=== PATIENT | male | born 1990 | race Caucasian/White ===

== ENCOUNTER 2019-05-16 16:08 | Emergency (ER) | payer MEDICAID ==
[2019-05-16 16:43] VITALS: BP 144/85; PULSE 70; O2SAT 97
--- NOTE | 2019-05-16 16:52 | ERPHSYRPT ---
- History of Present Illness Time Seen by Provider: 05/16/19 16:35 Historian: patient Exam Limitations: no limitations Patient Subjective Stated Complaint: pt co chronic abd pain for years now that has never been worked up, he is having bright red blood in stools, pt unsure for how long, he states he used to smoke pot for this pain but now he can not since he lives in [place], Triage Nursing Assessment: pt alert, poor historian, walked in, resp easy, skin w/d/p.abd soft but tender to right sode of abd with palpation Physician History: patient is a chronically pain. He also says that he has been having blood in the stool for many years. Never saw the doctor for the same. History of marijuana use in the past.Patient says he is going through a lot of stress. Timing/Duration: other (years) Quality: cramping Abdominal Pain Onset Location: generalized abdomen Pain Radiation: no radiation Severity of Pain-Max: moderate Severity of Pain-Current: moderate Modifying Factors: Improves With: nothing Associated Symptoms: fatigue, nausea, weakness, No back, No chest pain, No diaphoresis, No diarrhea, No fever/chills, No headache, No heartburn, No loss of appetite, No neck pain, No rash, No shortness of breath, No syncope, No testicular pain, No vomiting Previous symptoms: same symptoms as today Allergies/Adverse Reactions: quetiapine [From Seroquel] Allergy (Verified 05/16/19 16:44) risperidone [From Risperdal] Allergy (Verified 05/16/19 16:44) Home Medications: No Reportable Medications [No Reported Medications] 05/16/19 [History] Hx Influenza Vaccination/Date Given: No Hx Pneumococcal Vaccination/Date Given: No Immunizations Up to Date: Yes - Review of Systems Constitutional: No Fever, No Chills Eyes: No Symptoms Ears, Nose, & Throat: No Symptoms Respiratory: No Cough, No Dyspnea Cardiac: No Chest Pain, No Edema, No Syncope Abdominal/Gastrointestinal: Abdominal Pain, Nausea, Melena, Other (rectal bleeding), No Vomiting, No Diarrhea Genitourinary Symptoms: No Dysuria Musculoskeletal: No Back Pain, No Neck Pain Skin: No Rash Neurological: No Dizziness, No Focal Weakness, No Sensory Changes Psychological: No Symptoms Endocrine: No Symptoms All Other Systems: Reviewed and Negative - Past Medical History Pertinent Past Medical History: No - Past Surgical History Past Surgical History: Yes - Social History Smoking Status: Current every day smoker Exposure to second hand smoke: Yes Drug Use: marijuana Patient Lives Alone: No Significant Family History: no pertinent family hx - Nursing Vital Signs Nursing Vital Signs: Initial Vital Signs Temperature 99.1 F 05/16/19 16:34 Pulse Rate 70 05/16/19 16:34 Respiratory Rate 16 05/16/19 16:34 Blood Pressure 144/85 05/16/19 16:34 O2 Sat by Pulse Oximetry 97 05/16/19 16:34 Pain Scale Pain Intensity 4 - Physical Exam General Appearance: no apparent distress, alert Eye Exam: PERRL/EOMI, eyes nml inspection Ears, Nose, Throat Exam: normal ENT inspection, pharynx normal, moist mucous membranes Neck Exam: normal inspection, non-tender, supple, full range of motion Respiratory Exam: normal breath sounds, lungs clear, No respiratory distress Cardiovascular Exam: regular rate/rhythm, normal heart sounds Gastrointestinal/Abdomen Exam: soft, tenderness (diffuse vague tenderness.), No mass, No guarding, No rebound, No hernia Back Exam: normal inspection, normal range of motion, No CVA tenderness, No vertebral tenderness Extremity Exam: normal inspection, normal range of motion, pelvis stable Neurologic Exam: alert, oriented x 3, cooperative, normal mood/affect, nml cerebellar function, sensation nml, No motor deficits Skin Exam: normal color, warm, dry SpO2 Interpretation: normal SpO2: 97 O2 Delivery: Room Air - Course Nursing assessment & vital signs reviewed: Yes - CT Exams Abdomen/Pelvis CT Interpretation: Discussed w/radiologist, Other (nothing acute) Ordered Tests: Active Orders 24 hr Category Date Time Status IV Insertion STAT Care 05/16/19 16:52 Active ABDOMEN AND PELVIS W CONTRAST [CT] Stat Exams 05/16/19 16:53 Taken CBC W DIFF Stat Lab 05/16/19 18:50 Completed CMP Stat Lab 05/16/19 18:50 Completed LIPASE Stat Lab 05/16/19 18:50 Completed Occult Blood, Other Screening Stat Lab 05/16/19 18:00 Completed UA W/RFX UR CULTURE Stat Lab 05/16/19 Completed Urine Triage Profile Stat Lab 05/16/19 17:24 Completed Medication Summary Discontinued Medications Generic Name Dose Route Start Last Admin Trade Name Freq PRN Reason Stop Dose Admin Sodium Chloride 1,000 mls @ 999 mls/hr 05/16/19 16:52 05/16/19 18:18 Sodium Chloride 0.9% 1000 Ml IV 05/16/19 17:52 Infused .Q1H1M STA Infusion Sodium Chloride Confirm 05/16/19 17:10 Sodium Chloride 0.9% 1000 Ml Administered 05/16/19 17:11 Dose 1,000 mls @ ud .ROUTE .STK-MED ONE Morphine Sulfate 4 mg 05/16/19 16:52 05/16/19 17:11 Morphine Sulfate 4 Mg Inj IV 05/16/19 16:53 Not Given STAT ONE Morphine Sulfate Confirm 05/16/19 17:09 Morphine Sulfate 4 Mg Inj Administered 05/16/19 17:10 Dose 4 mg .ROUTE .STK-MED ONE Ondansetron HCl 4 mg 05/16/19 16:52 05/16/19 17:12 Zofran 4 Mg/2 Ml Vial IV 05/16/19 16:53 4 mg STAT ONE Administration Ondansetron HCl Confirm 05/16/19 17:09 Zofran 4 Mg/2 Ml Vial Administered 05/16/19 17:10 Dose 4 mg .ROUTE .STK-MED ONE Lab/Rad Data: Laboratory Result Diagrams 05/16/19 18:50 05/16/19 18:50 Laboratory Results 05/16/19 05/16/19 05/16/19 Range/Units Unknown 18:50 18:50 WBC 10.8 H (4.0-10.5) K/mm3 RBC 4.35 (4.1-5.6) M/mm3 Hgb 14.0 (12.5-18.0) gm/dl Hct 39.3 L (42-50) % MCV 90.3 (78-100) fl MCH 32.2 H (26-32) pg MCHC 35.6 (32-36) g/dl RDW 12.4 (11.5-14.0) % Plt Count 251 (150-450) K/mm3 MPV 9.4 (6-9.5) fl Gran % 63.9 (36.0-66.0) % Eos # (Auto) 0.60 H (0-0.5) Absolute Lymphs (auto) 2.15 (1.0-4.6) Absolute Monos (auto) 1.08 (0.0-1.3) Lymphocytes % 19.9 L (24.0-44.0) % Monocytes % 10.0 (0.0-12.0) % Eosinophils % 5.5 H (0.00-5.0) % Basophils % 0.7 (0.0-0.4) % Absolute Granulocytes 6.92 H (1.4-6.9) Basophils # 0.08 (0-0.4) Sodium 139 (137-145) mmol/L Potassium 3.8 (3.5-5.1) mmol/L Chloride 106 (98-107) mmol/L Carbon Dioxide 24 (22-30) mmol/L Anion Gap 12.8 (5-15) MEQ/L BUN 8 L (9-20) mg/dL Creatinine 0.61 L (0.66-1.25) mg/dL Estimated GFR > 60.0 ML/MIN Glucose 78 (74-106) mg/dL Calcium 8.3 L (8.4-10.2) mg/dL Total Bilirubin 0.60 (0.2-1.3) mg/dL AST 27 (17-59) U/L ALT 14 (0-50) U/L Alkaline Phosphatase 52 (38-126) U/L Serum Total Protein 6.5 (6.3-8.2) g/dL Albumin 4.0 (3.5-5.0) g/dL Lipase 68 (23-300) U/L Urine Color YELLOW (YELLOW) Urine Appearance CLEAR (CLEAR) Urine pH 5.0 (5-6) Ur Specific [place] 1.009 (1.005-1.025) Urine Protein NEGATIVE (Negative) Urine Ketones NEGATIVE (NEGATIVE) Urine Blood SMALL (0-5) Johan/ul Urine Nitrite NEGATIVE (NEGATIVE) Urine Bilirubin NEGATIVE (NEGATIVE) Urine Urobilinogen NEGATIVE (0-1) mg/dL Ur Leukocyte Esterase NEGATIVE (NEGATIVE) Urine WBC (Auto) NONE (0-5) /HPF Urine RBC (Auto) NONE (0-2) /HPF U Epithel Cells (Auto) NONE (FEW) /HPF Urine Bacteria (Auto) NONE (NEGATIVE) /HPF Urine Mucus (Auto) SLIGHT (NEGATIVE) /HPF Urine Culture Reflexed NO (NO) Urine Glucose NEGATIVE (NEGATIVE) mg/dL Stool Occult Blood (Negative) Urine Opiates Level (NEGATIVE) Ur Methadone (NEGATIVE) Urine Barbiturates (NEGATIVE) Ur Phencyclidine (PCP) (NEGATIVE) Urine Amphetamine (NEGATIVE) U Benzodiazepine Level (NEGATIVE) Urine Cocaine (NEGATIVE) Urine Marijuana (THC) (NEGATIVE) 05/16/19 05/16/19 Range/Units 18:00 17:24 WBC (4.0-10.5) K/mm3 RBC (4.1-5.6) M/mm3 Hgb (12.5-18.0) gm/dl Hct (42-50) % MCV (78-100) fl MCH (26-32) pg MCHC (32-36) g/dl RDW (11.5-14.0) % Plt Count (150-450) K/mm3 MPV (6-9.5) fl Gran % (36.0-66.0) % Eos # (Auto) (0-0.5) Absolute Lymphs (auto) (1.0-4.6) Absolute Monos (auto) (0.0-1.3) Lymphocytes % (24.0-44.0) % Monocytes % (0.0-12.0) % Eosinophils % (0.00-5.0) % Basophils % (0.0-0.4) % Absolute Granulocytes (1.4-6.9) Basophils # (0-0.4) Sodium (137-145) mmol/L Potassium (3.5-5.1) mmol/L Chloride (98-107) mmol/L Carbon Dioxide (22-30) mmol/L Anion Gap (5-15) MEQ/L BUN (9-20) mg/dL Creatinine (0.66-1.25) mg/dL Estimated GFR ML/MIN Glucose (74-106) mg/dL Calcium (8.4-10.2) mg/dL Total Bilirubin (0.2-1.3) mg/dL AST (17-59) U/L ALT (0-50) U/L Alkaline Phosphatase (38-126) U/L Serum Total Protein (6.3-8.2) g/dL Albumin (3.5-5.0) g/dL Lipase (23-300) U/L Urine Color (YELLOW) Urine Appearance (CLEAR) Urine pH (5-6) Ur Specific [place] (1.005-1.025) Urine Protein (Negative) Urine Ketones (NEGATIVE) Urine Blood (0-5) Johan/ul Urine Nitrite (NEGATIVE) Urine Bilirubin (NEGATIVE) Urine Urobilinogen (0-1) mg/dL Ur Leukocyte Esterase (NEGATIVE) Urine WBC (Auto) (0-5) /HPF Urine RBC (Auto) (0-2) /HPF U Epithel Cells (Auto) (FEW) /HPF Urine Bacteria (Auto) (NEGATIVE) /HPF Urine Mucus (Auto) (NEGATIVE) /HPF Urine Culture Reflexed (NO) Urine Glucose (NEGATIVE) mg/dL Stool Occult Blood NEGATIVE (Negative) Urine Opiates Level NEGATIVE (NEGATIVE) Ur Methadone NEGATIVE (NEGATIVE) Urine Barbiturates NEGATIVE (NEGATIVE) Ur Phencyclidine (PCP) NEGATIVE (NEGATIVE) Urine Amphetamine NEGATIVE (NEGATIVE) U Benzodiazepine Level NEGATIVE (NEGATIVE) Urine Cocaine NEGATIVE (NEGATIVE) Urine Marijuana (THC) POSITIVE (NEGATIVE) - Progress Progress: improved Progress Note: 05/16/19 19:06 Delayt in dispo as we do not have lab results. 05/16/19 19:26 this is patient's a chronic problem. I advised him to see wound care specialist for a colonoscopy. The patient understood and agreed. Counseled pt/family regarding: lab results, diagnosis, need for follow-up, rad results, smoking cessation - Departure Departure Disposition: Home Clinical Impression: Rectal bleeding Abdominal pain Qualifiers: Abdominal location: generalized Qualified Code(s): R10.84 - Generalized abdominal pain Condition: Stable Critical Care Time: No Instructions: Bloody Stools, Acute Abdomen (Belly Pain)
[2019-05-16] MEDS ORDERED: MORPHINE SULFATE 4 MG INJ ONE (17:09)
[2019-05-16] MEDS ORDERED: Zofran 4 MG/2 ML VIAL ONE (17:09)
[2019-05-16] MEDS ORDERED: Sodium Chloride 0.9% 1000 ML 1,000 ML ONE (17:10)
[2019-05-16] MEDS: MORPHINE SULFATE 4 MG INJ IV ONE (17:11)
[2019-05-16] MEDS: Sodium Chloride 0.9% 1000 ML 1,000 ML IV STA (17:11)
[2019-05-16] MEDS: Zofran 4 MG/2 ML VIAL IV ONE (17:12)
[2019-05-16 19:01] LABS: Absolute Neutrophil Ct (ANC) 6.92 (1.4-6.9); BASOPHIL % 0.7 % (0.0-0.4); Basophil (Absolute #) 0.08 (0-0.4); Eosinophil % 5.5 % (0.00-5.0); Hematocrit 39.3 % (42-50); Lymphocyte (Absolute #) 2.15 (1.0-4.6); Lymphocytes % 19.9 % (24.0-44.0); Mean Cell Volume 90.3 fl (78-100); Mean Corpuscular Hemoglobin 32.2 pg (26-32); Mean Corpuscular Hgb Concent. 35.6 g/dl (32-36); Mean Platelet Volume 9.4 fl (6-9.5); Monocyte (Absolute #) 1.08 (0.0-1.3); Neutrophil % 63.9 % (36.0-66.0); Platelet Count 251 K/mm3 (150-450); Red Blood Count 4.35 M/mm3 (4.1-5.6); Red Cell Distribution Width 12.4 % (11.5-14.0); White Blood Count 10.8 K/mm3 (4.0-10.5)
[2019-05-16 19:03] LABS: Appearance CLEAR (CLEAR); Bilirubin NEGATIVE (NEGATIVE); Blood SMALL Ery/ul (0-5); Glucose NEGATIVE (NEGATIVE); Ketones NEGATIVE (NEGATIVE); Leukocyte Esterase NEGATIVE (NEGATIVE); Mucus SLIGHT /HPF (NEGATIVE); Nitrite NEGATIVE (NEGATIVE); Protein,Urine Dip NEGATIVE (Negative); Specific Gravity 1.009 (1.005-1.025); Urobilinogen NEGATIVE mg/dL (0-1)
[2019-05-16 19:15] LABS: ALKALINE PHOSPHATASE 52 U/L (38-126); ANION GAP 12.8 MEQ/L (5-15); BLOOD UREA NITROGEN 8 mg/dL (9-20); CHLORIDE 106 mmol/L (98-107); Calcium 8.3 mg/dL (8.4-10.2); Carbon Dioxide 24 mmol/L (22-30); Creatinine 1 0.61 mg/dL (0.66-1.25); Glucose 78 mg/dL (74-106); LIPASE 68 U/L (23-300); Potassium 3.8 mmol/L (3.5-5.1); SGOT/AST 27 U/L (17-59); SGPT/ALT 14 U/L (0-50); SODIUM 139 mmol/L (137-145); Total Protein 6.5 g/dL (6.3-8.2)
[2019-05-16 19:21] LABS: Amphetamine,Urine NEGATIVE (NEGATIVE); Barbiturate,Urine NEGATIVE (NEGATIVE); Benzodiazepine,Urine NEGATIVE (NEGATIVE); Cocaine,Urine NEGATIVE (NEGATIVE); Methadone,Urine NEGATIVE (NEGATIVE); Opiate,Urine NEGATIVE (NEGATIVE); PCP,Urine NEGATIVE (NEGATIVE); THC,Urine POSITIVE (NEGATIVE)
--- NOTE | 2019-05-17 08:46 | XRAY ---
Indication: Abdomen pain. Blood in stool. Multiple contiguous axial images obtained through the abdomen and pelvis using 80 cc Isovue 370 contrast only. Comparison: None. Lung bases clear with incidental tiny lingula calcified granuloma. Heart is not enlarged. Noncontrasted stomach and bowel loops appear nonobstructed. Appendix not seen. No free fluid/air. Remaining liver, gallbladder, pancreas, spleen, adrenal glands, kidneys, ureters, bladder, and aorta appear normal in CT appearance and attenuation. No pathologic retroperitoneal lymphadenopathy. Osseous structures intact. Impression: CT abdomen/pelvis with contrast exam is negative. CT DI 4.13
== END 2019-05-16 19:45 | disposition home or self-care (01) ==
LOC: ED 16:08
DX: K62.5 Hemorrhage of anus and rectum (principal); R10.84 Generalized abdominal pain
CPT/HCPCS: 36415; 74177; 80053; 80307; 81001; 82272; 83690; 85025; 96360; 96374; 96375; 99284; J2270; J2405